=== PATIENT | female | born 1965 | race Caucasian/White ===

== ENCOUNTER 2024-08-30 11:51 | Emergency (ER) | payer BC ==
[~2024-08-30] VITALS: Ht 162.6 cm; Wt 88.6 kg
[2024-08-30] MEDS ORDERED: FLUO-290 PO (12:07)
[2024-08-30] MEDS ORDERED: IBUP200C25 PO (12:07)
[2024-08-30 14:30] VITALS: BP 132/80; TEMP 98; O2SAT 98
== END 2024-08-30 14:33 | disposition home or self-care (01) ==
LOC: M ED 11:51
DX: M25.571 Pain in right ankle and joints of right foot (principal); F41.9 Anxiety disorder, unspecified; F32.A Depression, unspecified; Z79.1 Long term (current) use of non-steroidal anti-inflammatories (NSAID)